=== PATIENT | male | born 1955 | race Caucasian/White ===

== ENCOUNTER 2017-01-13 13:11 | Emergency (ER) | payer OTHER ==
--- NOTE | ~2017-01-13 | ER ---
PATIENT'S NAME: MARIBEL SCHWARTZ [facility] AGE: 61 Y [address] ROOM: [place] [id number] LOCATION: ED ADMIT DATE: 01/13/2017 ER/Outpatient Report DISCHARGE DATE: FAMILY PHYSICIAN: Levi Iverson PA-C ATTENDING PHYSICIAN: Cecille Joy Time of arrival: 1311 hours. Time seen: 1333 hours. IDENTIFICATION: A 61-year-old male. CHIEF COMPLAINT: Fatigue. HISTORY OF PRESENT ILLNESS: The patient is a 61-year-old male who at 10:00 a.m. had just climbed a grain bin, which was 30 feet high. When he went up and came back down, he was dizzy. When he got down, very tired. He went to the clinic in [place] and there his shoulder popped and since then he has had severe left anterior shoulder pain. He does have chronic bilateral shoulder pain. He has profound weakness and belching at this time. He denies any chest pain throughout this episode. He has had no nausea or vomiting; no numbness, tingling, or weakness; and no other problems or concerns. He does have a history of coronary artery disease with 2 st[address] [place] [address] 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 ALLERGIES: NO KNOWN DRUG ALLERGIES. CURRENT MEDICATIONS: 1. Flomax 0.4 mg b.i.d. 2. Enalapril 5 mg b.i.d. 3. Lasix 20 mg daily. 4. Meloxicam 15 mg daily. 5. Iron tablet daily. 6. Metoprolol 25 mg half tablet twice daily. 7. CoQ10 100 mg b.i.d. 8. Multivitamin daily. 9. Prilosec [id number] 20 mg daily. 10. Lipitor 20 mg daily. PAST MEDICAL HISTORY: Medical problems: Hypertension, coronary artery disease, BPH. PATIENT'S NAME: MARIBEL SCHWARTZ [facility] AGE: 61 Y [address] ROOM: [place] [id number] LOCATION: ED ADMIT DATE: 01/13/2017 ER/Outpatient Report DISCHARGE DATE: FAMILY PHYSICIAN: Levi Iverson PA-C ATTENDING PHYSICIAN: Cecille Joy PAST SURGICAL HISTORY: Prior surgeries, cardiac stents. FAMILY HISTORY: Positive for coronary artery disease. SOCIAL HISTORY: The patient lives just outside of [place]. Tobacco use, denies. Alcohol use, denies. Drug use, denies. REVIEW OF SYSTEMS: All systems reviewed and negative other than what is noted in the HPI. PHYSICAL EXAMINATION: VITAL SIGNS: Height 5 feet 8 inches and weight 89 kg. Blood pressure 119/80, pulse 64, respirations 16, temperature 96.9, and saturations 98% on room air. GENERAL: A 61-year-old male in no acute distress. HEENT: Head: Normocephalic, atraumatic. Ears: TMs translucent in both ears. Nose: Mucosa pink, no lesions. Mouth: No lesions. Pharynx benign. NECK: Supple. No lymphadenopathy. LUNGS: Clear to auscultation. Breath sounds are equal. HEART: Regular rate and rhythm. No murmur, rub, or gallop. ABDOMEN: Bowel sounds present. Soft, nondistended, nontender. SKIN: [place], warm, and dry. No lesions or rashes noted. NEURO: The patient is alert and oriented x4. Cranial nerves 2 through 12 grossly intact. Motor strength 5/5 throughout. Sensation is intact to light touch. No lower extremity edema. No calf tenderness. The patient has no nystagmus. 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 DIAGNOSTIC DATA: Pre-hospital EKG was reviewed prior to the patient arrival, which showed no acute ST elevation or depression. EKG on arrival at 1331 hours, normal sinus rhythm, 64 beats per minute. No acute ST elevation or depression. His T-wave in lead III and aVF which is unchanged from previous EKG in 2010. Repeat EKG at 1531 hours, normal sinus rhythm with first-degree AV block at 60 beats per minute. No acute ST elevation or depression. T-wave inversion in leads III and aVF again unchanged from previous EKG. Hemoglobin 14.2, hematocrit 41.8, platelets 168, white count 5.4 with a normal differential. Sodium 142, potassium 3.9, chloride 112, CO2 of 22, BUN 24, creatinine 1.1. Blood sugar 78. Liver enzymes normal. Magnesium 2.3. Cardiac enzymes, CPK 167, CK-MB 1.2, troponin I less than 0.040. TSH 0.614. 2-hour enzyme CPK 152, MB 1.1, troponin I less than 0.040. PATIENT'S NAME: MARIBEL SCHWARTZ [facility] AGE: 61 Y [address] ROOM: [place], [place] [address] LOCATION: [facility] ADMIT DATE: 01/13/2017 ER/Outpatient Report DISCHARGE DATE: FAMILY PHYSICIAN: Levi Iverson PA-C ATTENDING PHYSICIAN: Cecille Joy Chest x-ray, 1 view, no acute process, pending Radiology over-read. CT scan of head is negative. IMPRESSION: 1. Lethargy. 2. Left shoulder pain which is chronic. 3. Dizziness. The patient was given IV fluids 500 mL. He remained hemodynamically stable throughout his stay here in the emergency room. I did discuss this with Dr. Walls, his utility system operator. He will be discharged to home. Rest and fluids. No heavy exertion. No work until followup. Slow cautious movements. Follow up with Dr. Walls next Tuesday in [place] and his primary care physician in 1- 3 days. The patient and his significant other understand and agree, and all questions have been answered. MD RUBINA BEASLEY/jaylene /[id number] d: 01/14/17 0740 t: 01/14/17 1342, OUTPATIENT REPORT
[2017-01-13 13:24] LABS: BASOPHIL # 0.1 K/uL (0.0-0.2); BASOPHIL % 0.9 %; EOSINOPHIL # 0.2 K/uL (0.0-0.5); HEMATOCRIT 41.8 % (37.0-53.0); HEMOGLOBIN 14.2 g/dL (11.0-16.0); IMMATURE GRANULOCYTE % 0.2 %; LYMPHOCYTE # 1.7 K/uL (0.8-4.0); LYMPHOCYTE % 31.5 %; MCH 30.1 pg (27.0-34.0); MCV 88.6 fl (83.0-98.0); MONOCYTE # 0.5 K/uL (0.0-1.0); MONOCYTE % 9.8 %; NEUTROPHIL % 54.6 %; NRBC % 0 /100WBC (0-0.00); PLATELET COUNT 168 K/uL (150-450); RBC 4.72 M/uL (3.50-5.50); RDW-CV 12.5 % (11.9-14.6); WBC 5.4 K/uL (4.0-11.0)
[2017-01-13 13:32] LABS: INR - (THERAPEUTIC) 1.04 (0.92-1.07); PROTIME 10.9 SECONDS (9.8-11.4); PTT 32 SECONDS (25-32)
[2017-01-13 13:42] LABS: ALBUMIN 3.8 gm/dL (3.5-5.0); ALK PHOS 100 IU/L (33-138); ALT 31 IU/L (12-78); ANION GAP 11.9 (10.0-19.0); AST 14 IU/L (10-40); BLOOD UREA NITROGEN 24 mg/dL (6-24); CALCIUM 8.4 mg/dL (8.5-10.5); CHLORIDE 112 mMol/L (96-110); CO2 22 mMol/L (22-32); CPK 167 IU/L (35-332); CREATININE 1.1 mg/dL (0.6-1.3); ESTIMATED GFR (MDRD EQUATION) > 60; MAGNESIUM 2.3 mg/dL (1.8-2.6); POTASSIUM 3.9 mMol/L (3.7-5.1); SODIUM 142 mMol/L (135-145); TOTAL BILIRUBIN 1.2 mg/dL (0.0-1.5); TOTAL PROTEIN 6.9 g/dL (6.0-8.4)
[2017-01-13 15:29] LABS: CPK 152 IU/L (35-332)
== END 2017-01-13 17:20 | disposition disaster alternative care site (69) ==
LOC: GMED 13:11
PROVIDERS: Family Medicine
DX: R53.83 Other fatigue (principal); R42 Dizziness and giddiness; I25.10 Atherosclerotic heart disease of native coronary artery without angina pectoris; I10 Essential (primary) hypertension; N40.0 Benign prostatic hyperplasia without lower urinary tract symptoms; F17.210 Nicotine dependence, cigarettes, uncomplicated; Z79.01 Long term (current) use of anticoagulants; Z95.5 Presence of coronary angioplasty implant and graft; Z79.899 Other long term (current) drug therapy; G89.29 Other chronic pain; M25.512 Pain in left shoulder
CPT/HCPCS: J7030

== ENCOUNTER → 2017-01-13 | Outpatient (CLI) | payer OTHER | END | disposition disaster alternative care site (69) | LOC: GAMB 12:35 | DX: S49.92XA Unspecified injury of left shoulder and upper arm, initial encounter (principal); M25.512 Pain in left shoulder; X58.XXXA Exposure to other specified factors, initial encounter ==